=== PATIENT | male | born 1990 | race Two or more races ===

== ENCOUNTER 2021-05-20 17:51 | Emergency (ER) | payer SELFPAY ==
[2021-05-20 19:36] LABS: BASOPHIL 0.2 % (0-2); EOSINOPHIL 0.2 % (0-5); HCT 48.2 % (42.0-52.0); HGB 17.4 g/dl (13.2-18.0); LYMPHOCYTE 9.9 % (15-48); MCH 29.3 pg (25.0-31.0); MCHC 36.1 g/dL (32.0-36.0); MCV 81.3 fL (78.0-100.0); MONOCYTE 4.3 % (0-12); MPV 10.3 fL (6.0-9.5); NEUTROPHIL 85.2 % (41-80); NRBC 0; PLT 243 K/uL (150-400); RBC 5.93 M/uL (4.70-6.00); RDW 12.2 % (11.5-14.0); WBC 12.3 K/uL (4.0-10.5)
[2021-05-20 19:54] LABS: ALBUMIN 4.1 g/dL (3.4-5.0); BILIRUBIN - TOTAL 0.4 mg/dL (0.2-1.0); BUN/CREAT RATIO (CALC) 18.2 RATIO; CREATININE 0.88 mg/dL (0.67-1.17); GLOBULIN (CALCULATION) 3.9 g/dL; POTASSIUM 3.7 mmol/L (3.5-5.1)
[2021-05-20] MEDS ORDERED: OMEPRAZOLE 20MG20 MG PO (22:19)
[2021-05-20] MEDS ORDERED: CARAFATE1 GM PO (22:19)
== END 2021-05-20 22:24 | disposition home or self-care (01) ==
LOC: FER 17:51
PROVIDERS: Nurse Practitioner Family
DX: R10.13 Epigastric pain (principal); Z28.310 Unvaccinated for COVID-19
CPT/HCPCS: 36415; 80053; 85025; J7030; Q9967